=== PATIENT | female | born 1955 | race Hispanic/Latino ===

== ENCOUNTER 2018-05-21 10:28 | Emergency (ER) | payer OTHER ==
[2018-05-21] MEDS ORDERED: Acetaminophen 500 MG TAB ONE (10:51)
== END 2018-05-21 11:15 | disposition home or self-care (01) ==
LOC: ERS 10:28
DX: G51.0 Bell's palsy (principal); E11.9 Type 2 diabetes mellitus without complications; I10 Essential (primary) hypertension
CPT/HCPCS: 36416; 99283

== ENCOUNTER 2018-06-04 08:56 | Outpatient (CLI) | payer OTHER ==
--- NOTE | 2018-06-04 10:24 | MMO ---
BILATERAL SCREENING MAMMOGRAM: History: 62-year-old female. Routine screening mammography. Comparison: None. Baseline mammogram. Technique: CC and MLO views of both breasts are submitted for interpretation. This study is interpret ed with the assistance of computer aided detection. FINDINGS: Breasts are composed of scattered fibroglandular tissue. Bilaterally, no suspicious mass, architectur al distortion or suspicious calcification. Benign calcifications in the right breast. IMPRESSION: BIRADS category 2 - benign findings. RECOMMENDATION: Annual mammogram. POS: [facility]
== END 2018-06-04 08:57 | disposition home or self-care (01) ==
LOC: SCSMAMMO 08:56
PROVIDERS: ATTEND Family Medicine
DX: Z12.31 Encounter for screening mammogram for malignant neoplasm of breast (principal)
CPT/HCPCS: 77067

== ENCOUNTER 2018-08-12 08:13 | Outpatient (CLI) | payer OTHER ==
--- NOTE | 2018-08-12 10:37 | MRI ---
MRI CERVICAL SPINE WITHOUT CONTRAST: History: Cervical myopathy. Cervical pain x 10 years. Pain radiates down the right arm. Swelling, num bness, and tingling. Comparison: None. Technique: MRI cervical spine is performed without intravenous gadolinium administration. Multisequen tial, multiplanar imaging performed. FINDINGS: Mild straightening of the normal cervical lordosis appears to be positional. No significant STIR hype rintensity to suggest vertebral body edema or ligamentous injury. Appropriate T1 marrow signal intens ity of the cervical vertebrae. Cervical spine vertebral body height is maintained. No fracture. Visualized brain parenchyma, cervicomedullary junction, cervical cord, and upper thoracic cord have a normal size and signal intensity. 1.6 mm of anterolisthesis of C2 upon C3. 1 mm anterolisthesis of C3 upon C4. C2-3: Central disc bulge abuts the thecal sac. No significant spinal canal stenosis. Right neural for amen and left neural foramen are essentially patent. C3-4: Central/left paracentral disc protrusion. Mild deformity of the left hemicord without T2 hyperi ntensity of the cord. Overall mild central canal stenosis. Hypertrophic changes of the right uncal ve rtebral joint results in mild right foraminal narrowing. Left neural foramen is patent. C4-5: Broad based disc osteophyte complex effaces the ventral subarachnoid space. Deformity of the ce rvical cord. No T2 hyperintensity in the cord. Degenerative changes in the bilateral uncal vertebral joints results in moderate to severe right and moderate left foraminal narrowing. C5-6: Broad based disc complex abuts the thecal sac. Subarachnoid space is effaced. There is moderat e central canal stenosis. Hypertrophic change in bilateral uncal vertebral joints results in severe b ilateral foraminal narrowing. C6-7: There is a broad based disc osteophyte complex with a right paracentral component. Ventral suba rachnoid space is nearly effaced. Moderate central canal stenosis. Hypertrophic changes in the right uncal vertebral joint and left uncal vertebral joint result in severe right and moderate left forami nal narrowing. C7-T1: No significant disc osteophyte complex. No significant central canal stenosis. Neural foramina are patent. IMPRESSION: Degenerative changes of the cervical spine as above. POS: [facility]
== END 2018-08-12 08:14 | disposition home or self-care (01) ==
LOC: BICMRI 08:13
PROVIDERS: ATTEND Family Medicine
DX: M47.812 Spondylosis without myelopathy or radiculopathy, cervical region (principal); M48.02 Spinal stenosis, cervical region; M54.2 Cervicalgia
CPT/HCPCS: 72141